=== PATIENT | male | born 1950 | race Caucasian/White ===

== ENCOUNTER 2018-04-20 09:42 | Emergency (ER) | payer MEDICARE, OTHER ==
[2018-04-20 11:24] LABS: ABS Basophils 0 10^3/ul (0-0.2); ABS Eosinophils 0 10^3/ul (0-0.6); ABS Lymphocytes 0.5 10^3/ul (1.0-4.8); ABS Monocytes 0.2 10^3/ul (0-0.8); ABS Neutrophils 9.4 10^3/ul (1.5-7.7); ABS Nucleated RBC 0 10^3/ul; Eosinophil % 0.1 % (0-6); Hematocrit 36 % (42-52); Hemoglobin 12.4 g/dl (14.0-18.0); Lymphocyte % 4.8 % (25-47); Mean Corpuscular HGB Conc 35 g/dl (31-36); Mean Corpuscular Hemoglobin 30 pg (27-31); Mean Corpuscular Volume 88 fL (80-94); Mean Platelet Volume 7.9 fL (7.4-10.4); Nucleated Red Blood Cells % 0; Platelet Count 155 10^3/ul (150-450); Red Cell Distribution Width 14 % (10.5-15); White Blood Count 10.1 10^3/ul (3.5-10.8)
[2018-04-20 11:31] LABS: Urine Appearance Turbid; Urine Blood 2+ (Negative); Urine Color Yellow; Urine Ketones Negative (Negative); Urine Protein 1+(30 mg/dL) (Negative); Urine Red Blood Cell 3+(>10/hpf) (Absent); Urine Specific Gravity 1.011 (1.010-1.030); Urine Urobilinogen Negative (Negative); Urine White Blood Cell 3+(>20/hpf) (Absent)
[2018-04-20 11:48] LABS: EGFR Non-African American 27.9 (>60)
[2018-04-20] MEDS ORDERED: Ciprofloxacin TAB* 500 MG PO ONE (13:29)
--- NOTE | 2018-04-20 14:05 | ED ---
GI/ HPI - HPI Summary HPI Summary: Pt is 67 y/o [facility] by [facility] complaining of urgency to urinate, but not being able to relieve himself due to blocked chronic indwelling mejia with minimal output. Pt woke up at 0300 this morning and saw his mejia bag was empty , when usually it fills up overnight. He started feeling very uncomfortable, and when the pain was too great he called 911. Rates his pain 8/10 at triage. His catheter was placed in either January or February by urologist at [place] per pt. Pt states he does not know why the catheter was placed, however review of prior [facility] records for Jan 2018 shows that pt presented in acute renal failure with outlet obstruction, requiring dialysis capabilities, which were not availabe at that time at [facility], so pt was transferred. Mejia has remained in place since that time and pt's renal function has continued to improve, although it has not normalized. Pt is a vague historian, is a disabled . Vital signs while in room: HR 103 bpm, BP 209/113. Home Medications Medication Instructions Recorded Confirmed Type amLODIPine TAB* [Norvasc 5 mg TAB*] 5 mg PO DAILY 04/20/18 04/20/18 History - History of Current Complaint Chief Complaint: EDUrogenitalProblems Stated Complaint: CATH PROBLEM Hx Obtained From: Patient, Medical Records Onset/Duration: Started Hours Ago, Still Present Timing: Constant Severity: Moderate Current Severity: Severe Pain Intensity: 8 Location of Pain: Suprapubic Pain Characteristics: Aching, Pressure Associated Signs and Symptoms: Positive: Constipation, Hematuria, Other: - clots in chronic indwelling mejia bag, minimal urine output via mejia this am.. Negative: Fever Aggravating Factor(s): Nothing Alleviating Factor(s): Nothing - Allergy/Home Medications Allergies/Adverse Reactions: Allergies Allergy/AdvReac Type Severity Reaction Status Date / Time Penicillins Allergy Unknown Verified 04/20/18 11:46 Reaction Details tomato Allergy Rash Verified 04/20/18 11:46 Home Medications: Home Medications amLODIPine TAB* [Norvasc 5 mg TAB*] 5 mg PO DAILY 04/20/18 [History Confirmed ] PMH/Surg Hx/FS Hx/Imm Hx Previously Healthy: No Endocrine/Hematology History: Denies: Hx Diabetes Cardiovascular History: Reports: Hx Hypertension History: Reports: Hx Acute Renal Failure, Hx Benign Prostatic Hyperplasia, Other Problems/Disorders - chronic indwelling mejia catheter since Jan 2018 - Surgical History Surgery Procedure, Year, and Place: pt reports no surgeries. mejia cath place (not surgically) Infectious Disease History: No Infectious Disease History: Denies: Traveled Outside the [place] in Last 30 Days - Family History Known Family History: Positive: Diabetes - mother, Renal Disease - sister - Social History Occupation: Disabled Alcohol Use: Rare Substance Use Type: Reports: None Smoking Status (MU): Former Smoker Review of Systems Negative: Fever Cardiovascular: Negative Respiratory: Negative Positive: Abdominal Pain - suprapubic pain when mejia not draining Positive: hematuria, pain, urgency, other - clots in mejia Musculoskeletal: Negative Skin: Negative Neurological: Negative Psychological: Normal All Other Systems Reviewed And Are Negative: Yes Physical Exam - Summary Physical Exam Summary: Appearance: Chronically ill-appearing, severe pain distress, well-nourished, hypertensive Skin: Warm, color reflects adequate perfusion, dry Head: Normal Head/Face inspection, atraumatic Eyes: Conjunctiva clear ENT: Normal inspection Neck: Supple, no nodes, no JVD Respiratory: Lungs clear, normal breath sounds, no respiratory distress Cardio: RRR, No murmur, pulses normal, brisk capillary refill Abdomen: Soft, bladder is distended to umbilicus, mejia in place Bowel sounds: Present Musculoskeletal: Strength Intact/ROM intact, no calf tenderness, no edema. Psychological: Normal Neuro: Alert, muscle tone normal, no focal deficit : completed with Sung GONZALEZ in room, testes descended, circumcised penis, Mejia in place, completely obstructed, unable to irrigate, black electrical tape on end of catheter where balloon is inflated/deflated. Pt states he placed the tape there because it was leaking. States he did not contact any provider about this. Triage Information Reviewed: Yes Vital Signs On Initial Exam: Initial Vitals Temp Pulse Resp BP Pulse Ox 98.9 F 105 16 191/120 97 04/20/18 09:43 04/20/18 09:43 04/20/18 09:43 04/20/18 09:43 04/20/18 09:43 Vital Signs Reviewed: Yes Diagnostics - Vital Signs Vital Signs Temp Pulse Resp BP Pulse Ox 04/20/18 14:00 96 97 04/20/18 13:49 96 143/83 98 04/20/18 13:45 87 143/83 96 04/20/18 13:15 87 161/87 97 04/20/18 13:00 84 99 04/20/18 12:45 73 146/77 99 04/20/18 12:16 76 158/75 97 04/20/18 12:00 68 99 04/20/18 11:45 82 160/87 97 04/20/18 11:15 89 153/89 96 04/20/18 11:00 96 96 04/20/18 10:45 96 164/90 95 04/20/18 10:22 96 175/95 94 04/20/18 10:15 96 196/105 95 04/20/18 10:00 102 96 04/20/18 09:48 99 209/113 97 04/20/18 09:47 98 191/120 98 04/20/18 09:46 98 97 04/20/18 09:43 98.9 F 105 16 191/120 97 - Laboratory Lab Results: Lab Results 04/20/18 04/20/18 04/20/18 Range/Units 11:09 11:09 11:09 WBC 10.1 (3.5-10.8) 10^3/ul RBC 4.10 (4.00-5.40) 10^6/ul Hgb 12.4 L (14.0-18.0) g/dl Hct 36 L (42-52) % MCV 88 (80-94) fL MCH 30 (27-31) pg MCHC 35 (31-36) g/dl RDW 14 (10.5-15) % Plt Count 155 (150-450) 10^3/ul MPV 7.9 (7.4-10.4) fL Neut % (Auto) 92.4 H (38-83) % Lymph % (Auto) 4.8 L (25-47) % [place] % (Auto) 2.5 (0-7) % Eos % (Auto) 0.1 (0-6) % Baso % (Auto) 0.2 (0-2) % Absolute Neuts (auto) 9.4 H (1.5-7.7) 10^3/ul Absolute Lymphs (auto) 0.5 L (1.0-4.8) 10^3/ul Absolute Monos (auto) 0.2 (0-0.8) 10^3/ul Absolute Eos (auto) 0 (0-0.6) 10^3/ul Absolute Basos (auto) 0 (0-0.2) 10^3/ul Absolute Nucleated RBC 0 10^3/ul Nucleated RBC % 0 Sodium 137 (135-145) mmol/L Potassium 4.6 (3.5-5.0) mmol/L Chloride 112 H (101-111) mmol/L Carbon Dioxide 21 L (22-32) mmol/L Anion Gap 4 (2-11) mmol/L BUN 47 H (6-24) mg/dL Creatinine 2.35 H (0.67-1.17) mg/dL Est GFR ( Amer) 33.7 (>60) Est GFR (Non-Af Amer) 27.9 (>60) BUN/Creatinine Ratio 20.0 (8-20) Glucose 145 H (70-100) mg/dL Lactic Acid (0.5-2.0) mmol/L Calcium 9.7 (8.6-10.3) mg/dL Total Bilirubin 0.30 (0.2-1.0) mg/dL AST 19 (13-39) U/L ALT 22 (7-52) U/L Alkaline Phosphatase 82 (34-104) U/L C-Reactive Protein 1.55 (<8.01) mg/L Total Protein 6.8 (6.4-8.9) g/dL Albumin 4.0 (3.2-5.2) g/dL Globulin 2.8 (2-4) g/dL Albumin/Globulin Ratio 1.4 (1-3) Urine Color Yellow Urine Appearance Turbid Urine pH 8.0 (5-9) Ur Specific [place] 1.011 (1.010-1.030) Urine Protein 1+(30 mg/dl) A (Negative) Urine Ketones Negative (Negative) Urine Blood 2+ A (Negative) Urine Nitrate Positive A (Negative) Urine Bilirubin Negative (Negative) Urine Urobilinogen Negative (Negative) Ur Leukocyte Esterase 3+ A (Negative) Urine WBC (Auto) 3+(>20/hpf) A (Absent) Urine RBC (Auto) 3+(>10/hpf) A (Absent) Calcium Oxalate Crystal Present A (Absent) Triple Phos Crystals Present A (Absent) Urine Bacteria Absent (Absent) Urine Glucose Negative (Negative) 04/20/18 Range/Units 11:09 WBC (3.5-10.8) 10^3/ul RBC (4.00-5.40) 10^6/ul Hgb (14.0-18.0) g/dl Hct (42-52) % MCV (80-94) fL MCH (27-31) pg MCHC (31-36) g/dl RDW (10.5-15) % Plt Count (150-450) 10^3/ul MPV (7.4-10.4) fL Neut % (Auto) (38-83) % Lymph % (Auto) (25-47) % [place] % (Auto) (0-7) % Eos % (Auto) (0-6) % Baso % (Auto) (0-2) % Absolute Neuts (auto) (1.5-7.7) 10^3/ul Absolute Lymphs (auto) (1.0-4.8) 10^3/ul Absolute Monos (auto) (0-0.8) 10^3/ul Absolute Eos (auto) (0-0.6) 10^3/ul Absolute Basos (auto) (0-0.2) 10^3/ul Absolute Nucleated RBC 10^3/ul Nucleated RBC % Sodium (135-145) mmol/L Potassium (3.5-5.0) mmol/L Chloride (101-111) mmol/L Carbon Dioxide (22-32) mmol/L Anion Gap (2-11) mmol/L BUN (6-24) mg/dL Creatinine (0.67-1.17) mg/dL Est GFR ( Amer) (>60) Est GFR (Non-Af Amer) (>60) BUN/Creatinine Ratio (8-20) Glucose (70-100) mg/dL Lactic Acid 0.7 (0.5-2.0) mmol/L Calcium (8.6-10.3) mg/dL Total Bilirubin (0.2-1.0) mg/dL AST (13-39) U/L ALT (7-52) U/L Alkaline Phosphatase (34-104) U/L C-Reactive Protein (<8.01) mg/L Total Protein (6.4-8.9) g/dL Albumin (3.2-5.2) g/dL Globulin (2-4) g/dL Albumin/Globulin Ratio (1-3) Urine Color Urine Appearance Urine pH (5-9) Ur Specific [place] (1.010-1.030) Urine Protein (Negative) Urine Ketones (Negative) Urine Blood (Negative) Urine Nitrate (Negative) Urine Bilirubin (Negative) Urine Urobilinogen (Negative) Ur Leukocyte Esterase (Negative) Urine WBC (Auto) (Absent) Urine RBC (Auto) (Absent) Calcium Oxalate Crystal (Absent) Triple Phos Crystals (Absent) Urine Bacteria (Absent) Urine Glucose (Negative) Result Diagrams: 04/20/18 11:09 04/20/18 11:09 Lab Statement: Any lab studies that have been ordered have been reviewed, and results considered in the medical decision making process. Re-Evaluation - Re-Evaluation First Eval Re-Evaluation Time: 11:10 Change: Improved Comment: 18 F mejia replaced without problem. Urine sent for culture. Large clot returned as mejia replace, cloudy urine. Urine now without gross hematuria. Pt's pain has subsided. BP improved. Abdominal exam is benign with soft abdomen, no masses, nontender, kidneys non palpalbe. No CVAT. Second Eval Re-Evaluation Time: 13:45 Change: Improved Comment: discussed renal function still impaired but appears stable. Discussed need for definite urologic follow up with [facility] urologist and PCP. Will treat with Cipro after the mejia change, and due to cloudy urine with clots and gross hematuria. First dose of oral cipro given in ED. BP controlled without medication. GIGU Course/Dx - Course Course Of Treatment: Pt is 67 y/o M [facility] by [facility] complaining of urgency, but not being able to relieve himself due to blocked chronic indwelling mejia catheter. Pt woke up at 0300 this morning and saw his mejia bag was empty, when usually it fills up overnight. He started feeling very uncomfortable, and when the pain was too great he called 911. His catheter was placed in [facility] in January 2018 and further evaluated by [facility] urologist, when pt had outlet obstruction and acute renal failure, and no dialysis was available at [facility] at that time. Renal function has been monitored as an outpt and has been improving. Rates his pain 8/10 in severity. Bladder scan revealed 600 mL of fluid. Physical exam revealed bladder distended to umbilicus. His catheter was replaced with an 18 F catheter. Of note pt states he placed black electrical tape on the balloon port of the catheter because the catheter was leaking urine there. He did not report this to any provider, or seek medical attention for this. When the catheter was removed, it was inspected by CARLOS Almaraz and myself. Balloon appeared intact, and catheter had no obvious holes or abnormalities. In ED course was given first dose of 500 mg to treat possible UTI. Pt discharged home with prescription to 500 mg Cipro bid x 10 days. Pt told to follow up with urologist (given [facility] urologist name also) and Dr. Ulloa, and Dr. Hernandez, and pt is agreeable with this plan. He is discharged with mejia in place, draining freely, yellow urine, and started on Cipro 500mg po, with urine culture pending at time of discharge. - Diagnoses Differential Diagnoses - Male: Constipation, Bladder Dysfunction, BPH, Cancer, Cystitis, Dehydration, Urinary Tract Infection, Other - mejia catheter malfunction, acute renal failure, bladder cancer, renal cancer Provider Diagnoses: Obstructed Mejia catheter, Urinary catheter (Mejia) change required, Chronic kidney disease, UTI (urinary tract infection), Hypertensive urgency Discharge - Sign-Out/Discharge Documenting (check all that apply): Patient Departure - Discharge - Discharge Plan Condition: Stable Disposition: HOME Prescriptions: Ciprofloxacin TAB* [Cipro 500 MG TAB*] 500 mg PO BID #20 tab Patient Education Materials: Urinary Tract Infection in Men (DC), Chronic Kidney Disease (ED), Mejia Catheter Placement and Care (ED) Referrals: Rafiq Hernandez MD [Medical Doctor] - 2 Days Dain Parsons MD [Medical Doctor] - As Soon As Possible Baljinder Ulloa DO [Primary Care Provider] - 2 Days Additional Instructions: We replaced your catheter today with an 18 F catheter. We gave you your first dose of cipro 500mg to treat possible urinary tract infection. You will need to follow up with urology and Dr. Hernandez and your primary care doctor. Return to the ER if you have any new or worsening symptoms. - Billing Disposition and Condition Condition: STABLE Disposition: Home - Attestation Statements Document Initiated by Roneyibe: Yes Documenting Scribe: Salbador Burgos Provider For Whom Natalee is Documenting (Include Credential): Dr. Sagrario Kumari MD Scribe Attestation: ISalbador, scribed for Dr. Sagrario Kumari MD on 04/28/18 at 1513. Scribe Documentation Reviewed: Yes Provider Attestation: The documentation as recorded by the roneyibSalbador chairez accurately reflects the service I personally performed and the decisions made by me, Dr. Sagrario Kumari MD
[2018-04-20 14:31] VITALS: BP 150/92
== END 2018-04-20 14:29 | disposition home or self-care (01) ==
LOC: ED 09:42
DX: T83.091A Other mechanical complication of indwelling urethral catheter, initial encounter (principal); N39.0 Urinary tract infection, site not specified; I12.9 Hypertensive chronic kidney disease with stage 1 through stage 4 chronic kidney disease, or unspecified chronic kidney disease; N18.9 Chronic kidney disease, unspecified; Z87.891 Personal history of nicotine dependence; Z88.0 Allergy status to penicillin
CPT/HCPCS: 36415; 51702; 80053; 81003; 81015; 83605; 85025; 86140; 87077; 87086; 87186; 99283; A9270-GY

== ENCOUNTER 2018-07-02 07:51 | Emergency (ER) | payer MEDICARE, OTHER ==
--- NOTE | 2018-07-02 08:15 | ED ---
GI/ HPI - HPI Summary HPI Summary: This patient is a 67 year old male brought in by EMS to [facility] with a chief complaint of urinary retention. The patient does have a Mejia in place and has since Dr. Parsons did surgery for his collapsed kidney. This morning the patient woke up at 0000 with urinary urgency and when he checked his Mejia bag there was minimal output. Since then he states he has not passed urine into the bag and is c/o suprapubic distention and discomfort as well as the increased urgency. Pt reports the pain 5/ 10. He denies fever, chills, and n/v/d. Pt reports a hx of BPH and kidney issues without being on dialysis. - History of Current Complaint Chief Complaint: EDUrogenitalProblems Time Seen by Provider: 07/02/18 07:57 Stated Complaint: POSS CATH ISSUES Hx Obtained From: Patient Onset/Duration: Started Hours Ago, Still Present Timing: Constant Severity: Moderate Current Severity: Moderate Pain Intensity: 6 Location of Pain: Suprapubic Associated Signs and Symptoms: Positive: Negative - fever, chills, and n/v/d. - Allergy/Home Medications Allergies/Adverse Reactions: Allergies Allergy/AdvReac Type Severity Reaction Status Date / Time Penicillins Allergy Unknown Verified 07/02/18 08:03 Reaction Details tomato Allergy Rash Verified 07/02/18 08:03 Home Medications: Home Medications dilTIAZem HCl [Diltiazem 24Hr ER] 2 cap PO DAILY 07/02/18 [History Confirmed ] PMH/Surg Hx/FS Hx/Imm Hx Endocrine/Hematology History: Denies: Hx Diabetes Cardiovascular History: Reports: Hx Hypertension Denies: Hx Angioplasty GI History: Denies: Hx Pyloric Stenosis History: Reports: Hx Acute Renal Failure, Hx Benign Prostatic Hyperplasia, Other Problems/Disorders - chronic indwelling mejia catheter since Jan 2018 Neurological History: Denies: Hx Seizures - Surgical History Surgery Procedure, Year, and Place: pt reports no surgeries. mejia cath place (not surgically) Infectious Disease History: No Infectious Disease History: Denies: Traveled Outside the [place] in Last 30 Days - Family History Known Family History: Positive: Cardiac Disease, Hypertension, Diabetes - mother , Renal Disease - sister - Social History Alcohol Use: Rare Substance Use Type: Reports: None Smoking Status (MU): Former Smoker Review of Systems Negative: Fever, Chills Positive: Abdominal Pain - suprapubic . Negative: Vomiting, Diarrhea, Nausea Genitourinary: Other - urinary retention Positive: pain, urgency All Other Systems Reviewed And Are Negative: Yes Physical Exam - Summary Physical Exam Summary: GENERAL: Patient is a well-developed and nourished M who is lying comfortable in the stretcher. Patient is not in any acute respiratory distress. HEAD AND FACE: Normocephalic EYES: PERRLA, EOMI x 2. EARS: Hearing grossly intact. MOUTH: Oropharynx within normal limits. NECK: Supple, trachea is midline, no adenopathy, no JVD, no carotid bruit. CHEST: Symmetric, no tenderness at palpation LUNGS: there are rhonchi anteriorly CVS: Regular rate and rhythm, S1 and S2 present, no murmurs or gallops appreciated. ABDOMEN: Soft. Bowel sounds are normal. No abdominal abnormal pulsations. The patient is in obvious discomfort secondary to suprapubic pain EXTREMITIES: Full ROM in all major joints, no edema, no cyanosis or clubbing. NEURO: Alert and oriented x 3. No acute neurological deficits. Speech is normal and follows commands. SKIN: Dry and warm Triage Information Reviewed: Yes Vital Signs On Initial Exam: Initial Vitals Temp Pulse Resp BP Pulse Ox 98.7 F 112 20 202/101 93 07/02/18 08:01 07/02/18 08:01 07/02/18 08:01 07/02/18 08:01 07/02/18 08:01 Vital Signs Reviewed: Yes Diagnostics - Vital Signs Vital Signs Temp Pulse Resp BP Pulse Ox 07/02/18 08:01 98.7 F 112 20 202/101 93 - Laboratory Result Diagrams: 07/02/18 08:18 07/02/18 08:18 Lab Statement: Any lab studies that have been ordered have been reviewed, and results considered in the medical decision making process. Re-Evaluation - Re-Evaluation First Eval Re-Evaluation Time: 08:18 Change: Improved Comment: The nurse replaced the mejia and she reports small clot in his cloudy appearing urine. Urine sent to lab. GIGU Course/Dx - Course Assessment/Plan: This patient is a 67 year old male brought in by EMS to [facility] with a chief complaint of urinary retention. The patient does have a Mejia in place. The patients mejia was changed in the ED and his urine did show signs of a UTI. The patient was given Cipro in the ED. The patient is feeling better and mejia is draining properly. I discussed results with patient and he reports feeling better. He is hemodynamically stable and safe for discharge. Strict return precautions given and he will otherwise follow up with his PCP. He was also given a urology follow up. Given rx for cipro for his UTI. - Diagnoses Provider Diagnoses: UTI (urinary tract infection) Discharge - Sign-Out/Discharge Documenting (check all that apply): Patient Departure - Discharge Plan Condition: Stable Disposition: HOME Prescriptions: Ciprofloxacin HCl [Cipro] 500 mg PO BID 7 Days #14 tablet Patient Education Materials: Urinary Tract Infection in Men (ED), Mejia Catheter Placement and Care (ED) Referrals: Casey Marquis MD [Medical Doctor] - Dain Parsons MD [Medical Doctor] - Additional Instructions: Follow up with your primary care physician in 1-3 days. RETURN TO THE EMERGENCY DEPARTMENT FOR CHANGING OR WORSENING SYMPTOMS - Billing Disposition and Condition Condition: STABLE Disposition: Home - Attestation Statements Document Initiated by Maria Alejandrae: Yes Documenting Scribe: Yoshi Rhodes Provider For Whom Roneyibe is Documenting (Include Credential): Addison Euceda MD Scribe Attestation: Yoshi Coats scribed for Addison Euceda MD on 07/03/18 at 0931. Scribe Documentation Reviewed: Yes Provider Attestation: The documentation as recorded by the Yoshi grullon accurately reflects the service I personally performed and the decisions made by me, Addison Euceda MD Status of Scribe Document: Viewed
[2018-07-02 08:23] LABS: ABS Basophils 0 10^3/ul (0-0.2); ABS Eosinophils 0 10^3/ul (0-0.6); ABS Lymphocytes 0.7 10^3/ul (1.0-4.8); ABS Monocytes 0.4 10^3/ul (0-0.8); ABS Neutrophils 8.5 10^3/ul (1.5-7.7); ABS Nucleated RBC 0 10^3/ul; Eosinophil % 0.1 %; Hematocrit 40 % (42-52); Hemoglobin 13.5 g/dl (14.0-18.0); Lymphocyte % 7.4 %; Mean Corpuscular HGB Conc 34 g/dl (31-36); Mean Corpuscular Hemoglobin 29 pg (27-31); Mean Corpuscular Volume 87 fL (80-94); Mean Platelet Volume 7.5 fL (7.4-10.4); Nucleated Red Blood Cells % 0; Platelet Count 167 10^3/ul (150-450); Red Blood Count 4.62 10^6/ul (4.00-5.40); Red Cell Distribution Width 14 % (10.5-15); White Blood Count 9.7 10^3/ul (3.5-10.8)
[2018-07-02 08:45] LABS: Albumin 4.3 g/dL (3.2-5.2); Albumin/Globulin Ratio 1.6 (1-3); BUN/Creatinine Ratio 18.7 (8-20); Calcium 9.7 mg/dL (8.6-10.3); EGFR African American 35.5 (>60); EGFR Non-African American 29.3 (>60); Globulin 2.7 g/dL (2-4); Potassium 4.8 mmol/L (3.5-5.0); Total Bilirubin 0.4 mg/dL (0.2-1.0)
[2018-07-02 08:50] LABS: Urine Appearance Turbid; Urine Bacteria Absent (Absent); Urine Bilirubin Negative (Negative); Urine Blood 2+ (Negative); Urine Color Amber; Urine Glucose Negative (Negative); Urine Ketones Negative (Negative); Urine Nitrite Positive (Negative); Urine Protein 2+(100 mg/dL) (Negative); Urine Red Blood Cell 3+(>10/hpf) (Absent); Urine Specific Gravity 1.012 (1.010-1.030); Urine Urobilinogen Negative (Negative); Urine White Blood Cell 3+(>20/hpf) (Absent)
[2018-07-02] MEDS ORDERED: Ciprofloxacin TAB* 250 MG PO ONE (09:41)
[2018-07-02 10:01] VITALS: BP 135/79
== END 2018-07-02 10:00 | disposition home or self-care (01) ==
LOC: ED 07:51
DX: N39.0 Urinary tract infection, site not specified (principal); I10 Essential (primary) hypertension; Z87.891 Personal history of nicotine dependence
CPT/HCPCS: 36415; 80053; 81003; 81015; 85025; 87077; 87086; 87186; 99283; A9270-GY

== ENCOUNTER 2018-10-12 10:49 | Emergency (ER) | payer MEDICARE, OTHER ==
--- NOTE | 2018-10-12 11:01 | ED ---
GI/ HPI - HPI Summary HPI Summary: This patient is a 67 year old M presenting to [facility] requesting a catheter reinsertion as his fell out this morning around 0630. Non-radiating genital pain is rated 8/10 in severity. Patient denies fever, swelling, and discharge. Patient states he has had the catheter since January of 2018. PMHx of chronic kidney failure. - History of Current Complaint Chief Complaint: EDUrogenitalProblems Time Seen by Provider: 10/12/18 10:57 Stated Complaint: NEEDS CATHETER PUT IN PER PT Hx Obtained From: Patient Onset/Duration: Started Hours Ago Timing: Constant Severity: Moderate Current Severity: Moderate Pain Intensity: 8 Additional Locations for Males: Penis Associated Signs and Symptoms: Positive: Negative Additional Signs & Symptoms: Negative: Penile Swelling, Penile Discharge Aggravating Factor(s): Nothing Alleviating Factor(s): Nothing - Allergy/Home Medications Allergies/Adverse Reactions: Allergies Allergy/AdvReac Type Severity Reaction Status Date / Time Penicillins Allergy Unknown Verified 10/12/18 10:55 Reaction Details tomato Allergy Rash Verified 10/12/18 10:55 PMH/Surg Hx/FS Hx/Imm Hx Endocrine/Hematology History: Denies: Hx Diabetes Cardiovascular History: Reports: Hx Hypertension Denies: Hx Angioplasty GI History: Denies: Hx Pyloric Stenosis History: Reports: Hx Acute Renal Failure, Hx Benign Prostatic Hyperplasia, Other Problems/Disorders - chronic indwelling mejia catheter since Jan 2018 Neurological History: Denies: Hx Seizures - Surgical History Surgery Procedure, Year, and Place: pt reports no surgeries. mejia cath place (not surgically) Infectious Disease History: No Infectious Disease History: Denies: Traveled Outside the [place] in Last 30 Days - Family History Known Family History: Positive: Cardiac Disease, Hypertension, Diabetes - mother , Renal Disease - sister - Social History Alcohol Use: Rare Substance Use Type: Reports: None Smoking Status (MU): Former Smoker Review of Systems Negative: Fever Genitourinary: Other - mejia catheter placement Positive: pain. Negative: discharge All Other Systems Reviewed And Are Negative: Yes Physical Exam - Summary Physical Exam Summary: Appearance: Well-appearing, Well-nourished, lying in bed comfortable Skin: Warm, dry, no obvious rash Eyes: sclera anicteric, no conjunctival pallor ENT: mucous membranes moist Neck: deferred Respiratory: No signs of respiratory distress Cardiovascular: Appears well perfused, pulses are nml Abdomen: deferred Musculoskeletal: Moving all 4 extremities without obvious discomfort Neurological: Awake and alert, mentation is normal, speech is fluent and appropriate Psychiatric: affect is normal, does not appear anxious or depressed Triage Information Reviewed: Yes Vital Signs On Initial Exam: Initial Vitals Temp Pulse Resp BP Pulse Ox 96.7 F 75 16 165/102 95 10/12/18 10:55 10/12/18 10:55 10/12/18 10:55 10/12/18 10:55 10/12/18 10:55 Vital Signs Reviewed: Yes Diagnostics - Vital Signs Vital Signs Temp Pulse Resp BP Pulse Ox 10/12/18 10:55 96.7 F 75 16 165/102 95 - Laboratory Lab Statement: Any lab studies that have been ordered have been reviewed, and results considered in the medical decision making process. GIGU Course/Dx - Course Course Of Treatment: 67 year old M requesting a catheter reinsertion as his fell out this morning around 0630. Patient states he has had the catheter since January of 2018. Mejia catheter placed successfully without complications. Patient will be discharged home with mejia catheter instructions and is agreeable with this plan. - Diagnoses Provider Diagnoses: Urinary retention Discharge - Sign-Out/Discharge Documenting (check all that apply): Patient Departure - discharge Patient Received Moderate/Deep Sedation with Procedure: No - Discharge Plan Condition: Good Disposition: HOME Patient Education Materials: Mejia Catheter Placement and Care (ED) Referrals: Baljinder Ulloa DO [Primary Care Provider] - If Needed Additional Instructions: RETURN TO THE EMERGENCY DEPARTMENT FOR CHANGING OR WORSENING SYMPTOMS. - Billing Disposition and Condition Condition: GOOD Disposition: Home - Attestation Statements Document Initiated by Natalee: Yes Documenting Scribe: Monique Ruvalcaba Provider For Whom Natalee is Documenting (Include Credential): Lazaro Chu MD Scribe Attestation: Monique Coats scribed for Lazaro Chu MD on 10/14/18 at 1047. Scribe Documentation Reviewed: Yes Provider Attestation: The documentation as recorded by the Monique grullon accurately reflects the service I personally performed and the decisions made by me, Lazaro Chu MD Status of Scribe Document: Viewed
[2018-10-12 11:34] VITALS: BP 169/97
== END 2018-10-12 11:33 | disposition home or self-care (01) ==
LOC: ED 10:49
DX: R33.9 Retention of urine, unspecified (principal); I12.9 Hypertensive chronic kidney disease with stage 1 through stage 4 chronic kidney disease, or unspecified chronic kidney disease; N18.9 Chronic kidney disease, unspecified; Z88.0 Allergy status to penicillin; Z87.891 Personal history of nicotine dependence
CPT/HCPCS: 51702; 99282

== ENCOUNTER 2018-11-06 05:40 | Observation (INO) | payer MEDICARE, OTHER ==
--- NOTE | 2018-11-05 10:29 | HP ---
CC: Dr. Ulloa * ADMITTING HISTORY AND PHYSICAL: DATE OF ADMISSION: 11/06/18 ADMITTING DIAGNOSES: Benign prostatic hypertrophy and urinary retention. PLANNED PROCEDURE: Transurethral resection of prostate. SURGEON: Dr. Parsons. HISTORY OF PRESENT ILLNESS: Harish Gunn is a 67-year-old gentleman with a long complex history of urologic issues. In January 2018, he had been in the emergency room for gross hematuria and elevated creatinine of 5.5. He was transferred to [facility] and underwent bilateral stent insertion and placement of a Hernandez catheter and his creatinine subsequently stabilized at 2.3. He subsequently had undergone stent removal and has had an indwelling Hernandez catheter at least for the last 6 to 8 months. Cystoscopy in my office in July had revealed significantly enlarged, obstructing prostate and a trabeculated bladder. He also has underlying chronic kidney disease with creatinine in the 2 to 3 range. He is now been brought in for transurethral resection of prostate. PAST MEDICAL HISTORY: Significant for: 1. Hypertension. 2. Urinary retention. 3. Chronic kidney disease. 4. Remote history of skull fractures. PAST SURGICAL HISTORY: Significant for surgery for skull fracture on two separate occasions and ureteroscopy and stent insertion in January 2018. MEDICATIONS: On admission: 1. Calcium 500 mg daily. 2. Coreg 25 mg twice a day. 3. Cholecalciferol 400 units daily. 4. Doxazosin 4 mg twice daily. 5. Finasteride 5 mg daily. ALLERGIES AND INTOLERANCES: PENICILLIN and TERAZOSIN. FAMILY HISTORY: Negative for prostate or bladder cancer. SOCIAL HISTORY: Smoking history: He is a long time smoker and smokes about a pack a week for the last 40 or 50 years. REVIEW OF SYSTEMS: He denies any chest pain or shortness of breath. There is no history of diabetes mellitus or any other chronic medical condition. PHYSICAL EXAMINATION GENERAL: Reveals a pleasant middle aged gentleman. VITAL SIGNS: Blood pressure is 136/80, pulse 76 per minute, oxygen saturation 98% on room air, temperature 97. LUNGS: Clear bilaterally. CARDIOVASCULAR: Regular rate and rhythm. S1, S2. ABDOMEN: Soft without masses. A Hernandez catheter is in place draining clear urine. IMPRESSION: A 67-year-old gentleman with a longstanding history of urinary retention who is now being brought in for transurethral resection of prostate. I have discussed the procedure in detail with him including possible risks of bleeding, infection, urinary and erectile dysfunction and persistent urinary retention. He appears to understand and wishes to proceed as planned. [id number]/[facility] #: [id number] LEONIE
[~2018-11-06 05:40] MED LIST: Buffered Lidocaine 1% SYRIN* 1 ML/SYRINGE INTRADERM ONE
[2018-11-06] MEDS ORDERED: Famotidine IV* 10 MG/ML 2 ML (20 mg) IV ONE (06:00)
[2018-11-06] MEDS ORDERED: Lactated Ringers 1000 ML Bag* 1,000 ML IV SCH (06:00)
[2018-11-06] MEDS ORDERED: Dexamethasone IV* 4 MG/ML 1 ML (4 MG) IV SLOW PU ONE (06:00)
[2018-11-06] MEDS ORDERED: Dexamethasone IV* 4 MG/ML 1 ML (4 MG) ONE (06:07)
[2018-11-06] MEDS ORDERED: Buffered Lidocaine 1% SYRIN* 1 ML/SYRINGE INTRADERM ONE (06:07)
[2018-11-06] MEDS ORDERED: Levofloxacin 500 MG IVPREMIX(* 500 MG/100 ML BAG IVPB ONE (06:07)
[2018-11-06] MEDS ORDERED: Famotidine IV* 10 MG/ML 2 ML (20 mg) ONE (06:08)
[2018-11-06] MEDS ORDERED: fentaNYL* 50 MCG/ML 2 ML VIAL (100 MCG VIAL) ONE (07:25)
[2018-11-06] MEDS ORDERED: Midazolam* 1 MG/ML 5 ML VIAL (5 MG) ONE (07:26)
[2018-11-06] MEDS ORDERED: Midazolam* 1 MG/ML 2 ML VIAL (2 MG) ONE ×2 (08:07→08:54)
[2018-11-06] MEDS ORDERED: HYDROcodone/ACETAMIN 5-325 MG* 1 TAB PO PRN (08:21)
[2018-11-06] MEDS ORDERED: Ondansetron INJ* 2 MG/ML VIAL IV PRN (08:21)
[2018-11-06] MEDS ORDERED: oxyCODONE/Acetamin 5/325 MG* TAB PO PRN ×2 (08:21→11:06)
[2018-11-06] MEDS ORDERED: fentaNYL* 50 MCG/ML 2 ML VIAL (100 MCG VIAL) IV PRN (08:21)
[2018-11-06] MEDS ORDERED: Naloxone* 0.4 MG/ML 1 ML VIAL IV PRN (08:21)
[2018-11-06] MEDS ORDERED: Furosemide IV* 10 MG/ML 2 ML VIAL (20 MG) ONE (08:30)
[2018-11-06] MEDS ORDERED: Oxybutynin TAB* 5 MG PO PRN (11:06)
[2018-11-06] MEDS: LR IV SCH ×2 (11:35→18:22)
--- NOTE | 2018-11-06 11:52 | OP ---
CC: Dr. Baljinder Ulloa * DATE OF OPERATION: 11/06/18 - ROOM #342 DATE OF : 52 SURGEON: Dr. Dain Parsons. ANESTHESIOLOGIST: Dr. Arceo. ANESTHESIA: Spinal. PRE-OP DIAGNOSES: 1. Benign prostatic hypertrophy. 2. Urinary retention. POST-OP DIAGNOSES: 1. Benign prostatic hypertrophy. 2. Urinary retention. OPERATIVE PROCEDURE: Transurethral resection of prostate. COMPLICATIONS: None. BLOOD LOSS: Approximately 100 cc. FLUID REPLACEMENT: Crystalloid. CATHETER: 24-Vincentian 30 cc Hernandez. POSTOPERATIVE CONDITION: Stable. INDICATIONS: Harish Gunn is a 67-year-old gentleman with longstanding history of urinary retention and chronic kidney disease who has been managed with an indwelling Hernandez catheter. He is now being brought in for transurethral resection of prostate. DESCRIPTION OF PROCEDURE: After induction of spinal anesthesia, the patient was placed in dorsal lithotomy position. Sequential compression devices were in place and functioning. Initial evaluation revealed a normal-appearing urethra, a moderately large obstructing vascular prostate, and a trabeculated bladder with multiple soft bladder calculi. These were all irrigated out prior to starting the transurethral resection of prostate. Next, transurethral resection of prostate was carried out with the standard parameters where the proximal limit of the resection was the bladder neck, the distal limit was the veru, and the floor of the prostate was first resected followed by the lateral lobes and then the anterior tissue. The resected tissue was removed using the JadynCargoSpotter evacuator. Hemostasis was secured using the coagulating current. At the end of the procedure, hemostasis appeared satisfactory and a 24-Vincentian Hernandez was introduced without difficulty. The patient tolerated the procedure satisfactorily and was transferred back to the recovery area in stable condition. [id number]/[facility] #: [id number] [facility]
[2018-11-06 14:12] LABS: BUN/Creatinine Ratio 16.9 (8-20); Calcium 9.1 mg/dL (8.6-10.3); EGFR African American 46.5 (>60); EGFR Non-African American 38.4 (>60); Potassium 4.4 mmol/L (3.5-5.0)
[2018-11-06] MEDS: Docusate CAP* 100 MG PO SCH ×2 (14:13→19:28)
[2018-11-06] MEDS: Doxazosin TAB* 2 MG PO SCH (19:28)
[2018-11-06] MEDS: Carvedilol TAB* 25 MG PO SCH (19:28)
[2018-11-07] MEDS ORDERED: oxyCODONE/Acetamin 5/325 MG* TAB PO PRN (01:00)
[2018-11-07] MEDS: LR IV SCH ×2 (01:06→07:53)
[2018-11-07 07:19] VITALS: BP 146/66
[2018-11-07] MEDS ORDERED: COENZYME Q10 PO SCH (09:00)
[2018-11-07] MEDS ORDERED: MILK THISTLE PO SCH (09:00)
[2018-11-07] MEDS ORDERED: Cholecalciferol TAB* 400 UNIT PO SCH (09:00)
[2018-11-07] MEDS ORDERED: Calcium/Vitamin D TAB 250/125* TAB PO SCH (09:00)
[2018-11-07] MEDS: Doxazosin TAB* 2 MG PO SCH (09:45)
[2018-11-07] MEDS: Carvedilol TAB* 25 MG PO SCH (09:45)
[2018-11-07] MEDS: Docusate CAP* 100 MG PO SCH (09:46)
[2018-11-07] MEDS ORDERED: Levofloxacin TAB* 500 MG ONE (09:53)
[2018-11-07] MEDS ORDERED: Levofloxacin TAB* 500 MG PO ONE (10:45)
--- NOTE | 2018-11-07 22:09 | DS ---
DISCHARGE SUMMARY: DATE OF ADMISSION: 11/06/18 DATE OF DISCHARGE: 11/07/18 SURGICAL PROCEDURES ON THIS ADMISSION: Transurethral resection of prostate on 11/06/18. HISTORY: Harish Gunn is a 67-year-old gentleman with a longstanding history of BPH and urinary retention who has been managed with an indwelling Hernandez catheter. For details, please see admitting history and physical. HOSPITAL COURSE: On 11/06/18, Mr. Gunn underwent transurethral resection of prostate under spinal anesthesia. He was monitored overnight and was doing well with the Hernandez catheter draining. He had required periodic irrigation by the nursing staff, but in the morning the Hernandez catheter was draining light pink to clear urine with good output. He was given 1 dose of Levaquin 500 mg orally in the morning on 11/07/18 prior to discharge and was discharged to home for followup as an outpatient for cathedral removal. [id number]/[facility] #: [id number] [facility]TDD
== END 2018-11-07 10:20 | disposition home or self-care (01) ==
LOC: OR 05:40 → SSU 09:47
PROVIDERS: ADMIT Urology; ATTEND Urology
DX: N40.1 Benign prostatic hyperplasia with lower urinary tract symptoms (principal); R33.8 Other retention of urine; I12.9 Hypertensive chronic kidney disease with stage 1 through stage 4 chronic kidney disease, or unspecified chronic kidney disease; N18.9 Chronic kidney disease, unspecified; Z87.81 Personal history of (healed) traumatic fracture; Z88.0 Allergy status to penicillin; Z87.891 Personal history of nicotine dependence
CPT/HCPCS: 36415; 80048; 88305; 96360; 96361; 96374; 96376; A9270-GY; G0378; J1100; J1940; J1956; J2250; J3010